=== PATIENT | male | born 1985 | race Hispanic/Latino ===

== ENCOUNTER 2017-03-17 22:44 | Observation (INO) | payer SELFPAY ==
--- NOTE | 2017-03-17 23:27 | ED PDOC ---
HPI: Psych/Substance Abuse Time Seen by Provider: 03/17/17 23:00 Chief Complaint (Nursing): Alcohol Ingestion Chief Complaint (Provider): Alcohol Ingestion ED Caveat: Intoxicated History Per: Patient History/Exam Limitations: intoxication Current Symptoms Are (Timing): Still Present Modifying Factor(s): Alcohol Additional Complaint(s): Hank Randolph is a 31 year old male that was brought to the ED by Lucas [facility]DLETON for public intoxication. On arrival patient is unwilling to provide any information to provider. He is at high risk of self injury, staff injury, and elopement. Past Medical History Reviewed: Historical Data, Nursing Documentation, Vital Signs - Family History Family History: States: Unknown Family Hx - Allergies Allergies/Adverse Reactions: Allergies Allergy/AdvReac Type Severity Reaction Status Date / Time Unobtainable Allergy Verified 03/17/17 23:01 Review of Systems Review Of Systems: ROS cannot be obtained secondary to pt's inabilty to answer questions. Physical Exam - Reviewed Nursing Documentation Reviewed: Yes Vital Signs Reviewed: Yes - Physical Exam Appears: Positive for: Non-toxic. Negative for: No Acute Distress (Patient is highly agitated) Head Exam: Positive for: ATRAUMATIC, NORMOCEPHALIC Skin: Positive for: Normal Color, Warm Eye Exam: Positive for: Normal appearance, EOMI, PERRL Cardiovascular/Chest: Positive for: Regular Rate, Rhythm. Negative for: Murmur Respiratory: Positive for: Normal Breath Sounds. Negative for: Wheezing Extremity: Positive for: Normal ROM. Negative for: Deformity Neurologic/Psych: Positive for: Alert, Oriented, Other (Slurred speech). Negative for: Motor/Sensory Deficits - Laboratory Results Result Diagrams: 03/17/17 23:43 03/17/17 23:43 - Critical Care Total Time (In Min): 30 Medical Decision Making Medical Decision Making: Impression: 31 year old male wi acute agitation in setting of intoxication Plan: * Alcohol Serum * BMP * CMP * CBC * Accucheck * Urine Drug Screen * Ativan 2 mg IM Due to patient's high risk of self injury, staff injury, and possible elopement , patient will be placed in 4 point restraints, given 5 mg Haldol IM, ,and placed on 1:1. Scribe Attestation: Documented by Angela Harrington, acting as a scribe for Heriberto Lu MD. Provider Scribe Attestation: All medical record entries made by the Scribe were at my direction and personally dictated by me. I have reviewed the chart and agree that the record accurately reflects my personal performance of the history, physical exam, medical decision making, and the department course for this patient. I have also personally directed, reviewed, and agree with the discharge instructions and disposition. ED OBSERVATION Date of observation admission: 03/17/17 Time of observation admission: 23:55 - Observation admission statement Patient is being placed in observation because:: intoxication - Goals of Observation Goals of observation are:: clinical sobriety - Progress Note Progress Note: 03/17/17 23:55 Patient is pending clinical sobriety. Vitals are stable, and patient is resting comfortably. 03/18/17 01:30 Vitals are stable, and patient is resting comfortably. 03/18/17 03:00 Vitals are stable, and patient is sleeping in ED. 03/18/17 04:30 Vitals are stable, and patient is sleeping in ED. 03/18/17 05:35 Patient is awake, alert, and orientedx3, with steady gait and clear speech. Patient is stable for discharge home. Clinical Impression: Alcohol Intoxication Disposition - Clinical Impression Clinical Impression: Alcohol intoxication - Patient ED Disposition Is Patient to be Admitted: No - Disposition Disposition: Routine/Home Disposition Time: 05:35 Condition: STABLE
[2017-03-17 23:46] LABS: BASO % 0.5 % (0.0-2.0); EOS % 0.3 % (0.0-4.0); HEMOGLOBIN 16.5 g/dL (12.0-18.0); LYMPH % 24.8 % (20.0-40.0); MEAN CELL VOLUME 92.8 fl (80.0-94.0); MEAN CORPUSCULAR HEMOGLOBIN 31.8 pg (27.0-31.0); MEAN CORPUSCULAR HGB CONC 34.3 g/dL (33.0-37.0); MEAN PLATELET VOLUME 8.9 fl (7.2-11.7); MONO # 0.5 K/uL (0.0-0.8); MONO % 6.5 % (0.0-10.0); NEUT # 5.5 K/uL (1.8-7.0); NEUT % 67.9 % (50.0-75.0); NRBC % 0.2 % (0.0-0.0); RBC 5.17 Mil/uL (4.40-5.90); RED CELL DISTRIBUTION WIDTH 12.7 % (11.5-14.5); WHITE BLOOD COUNT 8.1 K/uL (4.8-10.8)
[2017-03-17] MEDS ORDERED: DiphenhydrAMINE 50 mg/ml Inj IM STA (23:57)
[2017-03-17 23:59] LABS: BLOOD UREA NITROGEN 8 mg/dl (9-20); GFR AFRICAN-AMERICAN > 60; GFR NON-AFRICAN AMERICAN > 60
[2017-03-18] MEDS ORDERED: DiphenhydrAMINE 50 mg/ml Inj ONE
[2017-03-18 04:45] VITALS: BP 116/66; PULSE 78; RESP 16; TEMP 98.2; O2SAT 97
== END 2017-03-18 05:35 | disposition home or self-care (01) ==
LOC: H.ER 22:44 → H.EROBSV 23:55
PROVIDERS: ADMIT Emergency Medicine; ATTEND Emergency Medicine
DX: F10.129 Alcohol abuse with intoxication, unspecified (principal)
CPT/HCPCS: 80048; 82948; 85025; 96372; 99283; G0378; G0480; J1630; J2060